=== PATIENT | female | born 1960 | race African-American/Black ===

== ENCOUNTER 2016-08-28 23:09 | Emergency (ER) | payer OTHER ==
[~2016-08-28] VITALS: Ht 157.5 cm; Wt 60.0 kg
[2016-08-28 23:12] VITALS: Ht 157.5 cm; Wt 60.0 kg
--- NOTE | 2016-08-29 00:02 | ERA ---
ER Documentation Chief Complaint Date/Time DATE: 08/29/16 TIME: 00:02 Chief Complaint Chronic abdominal pain HPI The patient is a 55-year-old female, presenting to the ER because of chronic abdominal pain. She was diagnosed with abdominal wall mass with CT scan and MRI on April 02, 2016 at [facility]. She is currently awaiting to see a mobile home set up person for medical clearance before surgery. She is visiting her daughter. She complains of chronic pain not relieved with [place]. She denies fever, chills, neck pain, chest pain, vomiting, diarrhea, dysuria, polyuria. She does not smoke nor drink Past medical history: History of abdominal mass, awaiting for surgery Past surgical history: None ROS All systems reviewed and are negative except as per history of present illness. Medications Home Meds Active Scripts Oxycodone HCl/Acetaminophen (Percocet 5-325 mg Tablet) 1 Each Tablet, 1 EACH PO Q6, #10 TAB Prov:NANCY RIOS MD 08/29/16 Allergies Allergies: Coded Allergies: No Known Allergy (Unverified , 08/29/16) Physical Exam Vitals Vital Signs Date Time Temp Pulse Resp B/P Pulse Ox O2 Delivery O2 Flow Rate FiO2 08/28/16 23:12 96.8 85 18 126/81 99 Physical Exam Const: No acute distress. Head: Atraumatic. Eyes: Normal Conjunctiva. ENT: Normal External Ears, Nose and Mouth. Neck: Full range of motion. No meningismus. Resp: Clear to auscultation bilaterally. Cardio: Regular rate and rhythm, no murmurs. Abd: Soft, non distended, normal bowel sounds, vague left upper quadrant tenderness, no rigidity, rebound, CVA tenderness Skin: No petechiae or rashes. Back: No midline or flank tenderness. Ext: No cyanosis, or edema. Neur: Awake and alert. No focal deficit Psych: Normal Mood and Affect. Result Diagram: 08/28/16 3332 08/28/16 9926 Results 24 hrs Laboratory Tests Test 08/28/16 23:55 08/29/16 00:03 White Blood Count 9.810^3/ul Red Blood Count 3.7610^6/ul Hemoglobin 12.1g/dl Hematocrit 36.7% Mean Corpuscular Volume 97.6fl Mean Corpuscular Hemoglobin 32.2pg Mean Corpuscular Hemoglobin Concent 33.0g/dl Red Cell Distribution Width 14.7% Platelet Count 09594^3/UL Mean Platelet Volume 9.2fl Neutrophils % 43.7% Lymphocytes % 47.0% Monocytes % 7.2% Eosinophils % 1.4% Basophils % 0.5% Nucleated Red Blood Cells % 0.0/100WBC Neutrophils # 4.310^3/ul Lymphocytes # 4.610^3/ul Monocytes # 0.710^3/ul Eosinophils # 0.110^3/ul Basophils # 0.110^3/ul Nucleated Red Blood Cells # 0.010^3/ul Sodium Level 138mmol/L Potassium Level 3.9mmol/L Chloride Level 103mmol/L Carbon Dioxide Level 27mmol/L Anion Gap 12 Blood Urea Nitrogen 18mg/dl Creatinine 0.91mg/dl Glucose Level 89mg/dl Calcium Level 8.9mg/dl Total Bilirubin 0.3mg/dl Direct Bilirubin 0.00mg/dl Indirect Bilirubin 0.3mg/dl Aspartate Amino Transf (AST/SGOT) 39IU/L Alanine Aminotransferase (ALT/SGPT) 29IU/L Alkaline Phosphatase 79IU/L Total Protein 7.8g/dl Albumin 4.4g/dl Globulin 3.40g/dl Albumin/Globulin Ratio 1.29 Lipase 130U/L Bedside Urine pH (LAB) 5.5 Bedside Urine Protein (LAB) Negative Bedside Urine Glucose (UA) Negative Bedside Urine Ketones (LAB) Negative Bedside Urine Blood 2+ Bedside Urine Nitrite (LAB) Negative Bedside Urine Leukocyte Esterase (L Negative Current Medications Medications (Trade) Dose Ordered Sig/Zhao Route PRN Reason Start Time Stop Time Status Last Admin Dose Admin Morphine Sulfate (morphine) 2 mg ONCE ONCE IV 08/29/16 00:30 08/29/16 00:31 DC 08/29/16 00:25 Ondansetron HCl 4 mg 4 mg ONCE STAT IV 08/29/16 00:12 08/29/16 00:13 DC 08/29/16 00:24 Sodium Chloride (NS) 1,000 ml @ 1,000 mls/hr Q1H ONCE IV 08/29/16 00:30 08/29/16 01:29 DC 08/29/16 00:25 Procedures/MDM MEDICAL MAKING DECISION: The patient is a 55-year-old female, presenting with chronic abdominal pain due to abdominal wall mass, awaiting for surgery, acute clinical dehydration. She was treated with 1 L normal saline for acute dehydration, morphine 2 mg IV for pain, Zofran 4 mg IV for nausea with good response. The differential diagnoses considered include but are not limited to cholelithiasis, cholecystitis, cystitis, pancreatitis, hepatitis, gastritis, peptic ulcer disease, gastric ulcer, appendicitis, diverticulitis, cholangitis, choledocholithiasis, partial small bowel obstruction. Departure Diagnosis: Primary Impression: Abdominal pain Condition: Good Comments She was discharged with 10 tablets of Percocet I discussed the findings with the patient. I advised the patient to follow-up with the primary physician in about 1-2 days, sooner if needed and return if any concern. The patient's blood pressure was elevated (>120/80) but appears stable without evidence of hypertension emergency or urgency. The patient was counseled about the risks of hypertension and urged to pursue outpatient monitoring and therapy within a week with their primary care physician. NANCY RIOS MD Aug 29, 2016 00:02
[2016-08-29 00:03] LABS: ADD SCAN DIFF NO
[2016-08-29 00:04] LABS: URINE BLOOD (Dip) POC 2+ (NEGATIVE)
[2016-08-29 00:05] LABS: BASOPHIL # 0.1 10^3/ul (0.0-0.1); BASOPHILS % 0.5 % (0.0-2.0); EOSINOPHILS # 0.1 10^3/ul (0.0-0.5); EOSINOPHILS % 1.4 % (0.0-7.0); HEMATOCRIT 36.7 % (37.0-47.0); HEMOGLOBIN 12.1 g/dl (12.0-16.0); LYMPHOCYTES # 4.6 10^3/ul (0.8-2.9); MEAN CORPUSCULAR HEMOGLOBIN 32.2 pg (29.0-33.0); MEAN CORPUSCULAR VOLUME 97.6 fl (82.0-101.0); MEAN PLATELET VOLUME 9.2 fl (7.4-10.4); MONOCYTE # 0.7 10^3/ul (0.3-0.9); MONOCYTES % 7.2 % (0.0-11.0); NEUTROPHIL # 4.3 10^3/ul (1.6-7.5); NEUTROPHILS % 43.7 % (39.0-77.0); PLATELET COUNT 248 10^3/UL (140-415); RED BLOOD COUNT 3.76 10^6/ul (4.20-5.40); RED CELL DISTRIBUTION WIDTH 14.7 % (11.5-14.5); WHITE BLOOD COUNT 9.8 10^3/ul (4.8-10.8)
[2016-08-29] MEDS ORDERED: ONDANSETRON 4 MG INJ IV STA (00:12)
[2016-08-29 00:16] LABS: ALBUMIN 4.4 g/dl (3.3-4.9)
[2016-08-29 00:17] LABS: POTASSIUM 3.9 mmol/L (3.5-5.1)
[2016-08-29 00:19] LABS: ALBUMIN/GLOBULIN RATIO 1.29; BILIRUBIN,INDIRECT 0.3 mg/dl (0-1.1); BILIRUBIN,TOTAL 0.3 mg/dl (0.2-1.3); CREATININE 0.91 mg/dl (0.44-1.00); TOTAL PROTEIN 7.8 g/dl (6.1-8.1)
[2016-08-29 00:20] LABS: CALCIUM 8.9 mg/dl (8.4-10.2)
[2016-08-29] MEDS ORDERED: morphine 2 MG INJ IV ONE (00:30)
[2016-08-29] MEDS ORDERED: SOD CHLORIDE 0.9% 1,000 ML IV ONE (00:30)
[2016-08-29] MEDS ORDERED: OXYC-279 PO (01:40)
[2016-08-29 01:58] VITALS: BP 116/67; PULSE 77; RESP 18; TEMP 97.7
== END 2016-08-29 01:58 | disposition home or self-care (01) ==
LOC: E/R 23:09
DX: R10.12 Left upper quadrant pain (principal); R11.0 Nausea
CPT/HCPCS: 80053; 81003; 83690; 85025; J2270; J2405; J7030; 36415; 96374; 96375